=== PATIENT | male | born 1950 | race Caucasian/White ===

== ENCOUNTER 2018-11-16 07:59 | Emergency (ER) | payer MEDICARE, BC ==
[2018-11-16 08:14] VITALS: BP 142/96
--- NOTE | 2018-11-16 08:28 | EDM.PDOC ---
ED HPI GENERAL MEDICAL PROBLEM - General Chief Complaint: Laceration Stated Complaint: LADDER FELL ON HEAD Time Seen by Provider: 11/16/18 08:25 Source of Information: Reports: Patient History Limitations: Reports: No Limitations - History of Present Illness INITIAL COMMENTS - FREE TEXT/NARRATIVE: pt arrived with a history of having a ladder fall and hit him in the occipital area. He was not knocked out. He is on coumadin therapy Onset: Today, Sudden Duration: Hour(s): Location: Reports: Head Associated Symptoms: Reports: No Other Symptoms, Other (pt has a laceration in the occipital area. 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 Other Gastrointestinal History: ulcerative colitis Musculoskeletal History: Reports: None Endocrine/Metabolic History: Reports: Hypothyroidism Other Dermatologic History: stasis dermatits - Infectious Disease History Infectious Disease History: Reports: Chicken Pox, Shingles - Past Surgical History Head Surgeries/Procedures: Reports: None GI Surgical History: Reports: Appendectomy Endocrine Surgical History: Reports: None Musculoskeletal Surgical History: Reports: Other (See Below) Other Musculoskeletal Surgeries/Procedures:: bilateral rotator cuff Dermatological Surgical History: Reports: None Social & Family History - Tobacco Use Smoking Status *Q: Former Smoker Used Tobacco, but Quit: Yes Month/Year Tobacco Last Used: 1974 Second Hand Smoke Exposure: No - Caffeine Use Caffeine Use: Reports: Coffee - Recreational Drug Use Recreational Drug Use: No ED ROS GENERAL - Review of Systems Review Of Systems: See Below Constitutional: Reports: No Symptoms HEENT: Reports: No Symptoms Respiratory: Reports: No Symptoms Cardiovascular: Reports: No Symptoms Endocrine: Reports: No Symptoms GI/Abdominal: Reports: No Symptoms : Reports: No Symptoms Neurological: Reports: Other (pt was hit on the back of the head. ) Psychiatric: Reports: No Symptoms Hematologic/Lymphatic: Reports: No Symptoms ED EXAM, SKIN/RASH Exam: See Below Text/Narrative:: pt had a ladder hit him on the back of his head. He was not knocked out. He is on coumadin. Exam Limited By: No Limitations General Appearance: Alert, Anxious, Mild Distress, Other ( Pupils are equal and reactive. ) Ears: Normal TMs Nose: Normal Inspection Throat/Mouth: Normal Inspection Head: Atraumatic Neck: Normal Inspection Respiratory/Chest: No Respiratory Distress Cardiovascular: Regular Rate, Rhythm GI/Abdominal: Soft, Non-Tender (Male) Exam: Deferred Rectal (Males) Exam: Deferred Back Exam: Normal Inspection Extremities: Normal Inspection Neurological: Alert, Oriented, Normal Cognition Skin: Other ( Pt has a 3 inch laceration obver the occipital area. This is bleeding easily because of the coumadin. ) Course - Vital Signs Last Recorded V/S: Last Vital Signs Temp 37.1 C 11/16/18 08:14 Pulse 106 H 11/16/18 08:14 Resp 12 11/16/18 08:14 BP 142/96 H 11/16/18 08:14 Pulse Ox 97 11/16/18 08:14 - Orders/Labs/Meds Labs: Laboratory Tests 11/16/18 Range/Units 08:40 PT 35.1 H (9.5-12.0) sec INR 3.42 H (0.80-1.20) Meds: Medications Discontinued Medications Generic Name Dose Route Start Last Admin Trade Name Natali PRN Reason Stop Dose Admin Bacitracin 1 dose 11/16/18 08:24 11/16/18 08:46 Bacitracin Oint 1 Gm TOP 11/16/18 08:25 1 dose ONETIME ONE Administration Lidocaine HCl 20 ml 11/16/18 08:23 11/16/18 08:46 Xylocaine 1% INJECT 11/16/18 08:24 20 ml ONETIME ONE Administration - Re-Assessments/Exams Free Text/Narrative Re-Assessment/Exam: 11/16/18 09:04 cat scan of the head was done. The wound was cleaned well and infiltrated with lidocaine. It was closed tightlt with 3-0 ethilon. Bacatracin was applied a pressure dressing was applied. . TYhe pressure dressing should stay on for at least 8 hours. Tomorrow Am pt can show and clean his hair and after that it needs to stay dry. Departure - Departure Time of Disposition: 09:24 Disposition: Home, Self-Care 01 Condition: Fair Clinical Impression: Laceration, Contusion of head - Discharge Information Referrals: Ruy Cisse MD [Primary Care Provider] - Forms: ED Department Discharge Care Plan Goals: leave pressure dressing on for at least 8 hours, shower tomorrow am and after that leave dry, no further ointments, suture removal in 7-8 days. Pt will need a tetanus in the next 2 years. Inr is elevated so he should not take coumadin today and a half dose tomorrow then the usual protocol.
[2018-11-16] MEDS: Lidocaine 1% 20 ML MDV INJECT ONE (08:46)
[2018-11-16] MEDS: Bacitracin Oint 1 GM U/D Packet TOP ONE (08:46)
--- NOTE | 2018-11-16 09:17 | CRLCT ---
CT HEAD, 11/16/2018 INDICATION: Blow to head. On Coumadin. TECHNIQUE: CT head without IV contrast. FINDINGS: No intracranial hemorrhage, edema, or mass effect. Mild cerebral and cerebellar atrophy. Tiny calcifications in both basal ganglia. Remainder negative. IMPRESSION: No acute intracranial disease. Chronic intracranial findings as above. GERARD JONES M.D. [email or web address] Transcribed: 9:06 a.caron garnett/Dictated by: Gerard Jones MD @ 11/16/2018 8:45:00 AM (Electronically Signed)
== END 2018-11-16 09:29 | disposition home or self-care (01) ==
LOC: JP.ED 07:59
DX: S01.01XA Laceration without foreign body of scalp, initial encounter (principal); W11.XXXA Fall on and from ladder, initial encounter
CPT/HCPCS: 12002; 12004; 36415; 70450; 85610; 99283-25; J2001

== ENCOUNTER 2022-12-12 21:53 | Emergency (ER) | payer MEDICARE, BC ==
[2022-12-12 22:45] LABS: ESTIMATED GFR 37 mL/min (>60)
[2022-12-13 00:40] VITALS: BP 137/66; PULSE 92
== END 2022-12-13 00:56 | disposition home or self-care (01) ==
LOC: JP.ED 21:53
DX: B34.9 Viral infection, unspecified (principal); N17.9 Acute kidney failure, unspecified; I10 Essential (primary) hypertension; E03.9 Hypothyroidism, unspecified; Z88.5 Allergy status to narcotic agent; Z79.899 Other long term (current) drug therapy; Z79.01 Long term (current) use of anticoagulants; Z86.16 Personal history of COVID-19
CPT/HCPCS: 36415; 74019; 74176; 80053; 81001; 83605; 85025; 85610; 85730; 86140; 99284